=== PATIENT | male | born 1940 | race Caucasian/White ===

== ENCOUNTER 2022-01-22 18:43 | Emergency (ER) | payer MEDICARE, BC ==
[~2022-01-22] VITALS: Ht 188 cm; Wt 90.7 kg
--- NOTE | 2022-01-22 20:15 | NUR ---
BIBS. TRIP & FALL + HEAD TRAUMA, -KO, ON ASAPIRIN 81MG DAILY. PATIENT IS AAOX4. ABLE TO MAKE NEEDS KNOWN. PLACED COMFORTABLY IN BED. VITALS CHECKED.
--- NOTE | 2022-01-22 20:45 | NUR ---
PT BROUGHT TO CT DEPT
[2022-01-22] MEDS ORDERED: TDAP [DIPH/PERTUSSIS/TET] 0.5 ML VIAL IM ONE ×2 (22:00→22:01)
[2022-01-22] MEDS ORDERED: BACI/NEOM/POLY B OINT PKT 1 UDPKT PACKET TP ONE (22:00)
[2022-01-22] MEDS ORDERED: BACI/NEOM/POLY B OINT PKT 1 UDPKT PACKET ONE (22:01)
--- NOTE | 2022-01-22 22:12 | NUR ---
Patient discharged to home in stable condition. Written and verbal after care instructions given. Patient verbalizes understanding of instruction. Pt ambulatory with a steady gait
[2022-01-22 22:13] VITALS: BP 112/68
== END 2022-01-22 22:14 | disposition home or self-care (01) ==
LOC: ER 18:43
DX: S00.81XA Abrasion of other part of head, initial encounter (principal); R51.9 Headache, unspecified; Z60.2 Problems related to living alone; W01.0XXA Fall on same level from slipping, tripping and stumbling without subsequent striking against object, initial encounter; Y93.89 Activity, other specified; Y92.89 Other specified places as the place of occurrence of the external cause; Y99.8 Other external cause status
CPT/HCPCS: 70450-TC; 90715